=== PATIENT | female | born 1960 | race Caucasian/White ===

== ENCOUNTER 2022-01-10 09:34 | Emergency (ER) | payer BC, SELFPAY ==
[2022-01-10 10:12] VITALS: BP 132/74; PULSE 76; RESP 16; TEMP 36.9; O2SAT 96; BMI 24.3
--- NOTE | 2022-01-10 10:16 | DI.RAD.S_ITS ---
PROCEDURE: XR SHOULDER LT MIN 2V INDICATIONS: fall TECHNIQUE: 3 views of the shoulder were acquired. COMPARISON: None. FINDINGS: Bones: No fractures or dislocations. Krlv-rg-qsiowamt acromioclavicular joint and glenohumeral joint osteoarthritic changes are seen. No suspicious bony lesions. Visualized ribs appear intact. Soft tissues: No suspicious soft tissue calcifications. IMPRESSION: Pblk-dn-safwalyo acromioclavicular joint and glenohumeral joint osteoarthritis. No shoulder fracture or dislocation. No gross soft tissue abnormalities. Dictated by: Donato Paredes M.D. on 01/10/2022 at 10:55 Approved by: Donato Paredes M.D. on 01/10/2022 at 10:56
--- NOTE | 2022-01-10 10:16 | DI.RAD.S_ITS ---
PROCEDURE: XR RIBS LT MIN 3V W CXR1V INDICATIONS: fall TECHNIQUE: To views of the left ribs were acquired, along with a single view chest. COMPARISON: None. FINDINGS: Surgical changes and devices: None. Bones and chest wall: No fractures or dislocations. No suspicious bony lesions. Overlying soft tissues appear unremarkable. Lungs and pleura: No pleural effusions or pneumothorax. Lungs appear clear. Mediastinum: Mediastinal contours appear normal. Heart size is normal. IMPRESSION: No obvious displaced left rib fracture is seen. No acute cardiopulmonary pathology. Dictated by: Donato Paredes M.D. on 01/10/2022 at 10:56 Approved by: Donato Paredes M.D. on 01/10/2022 at 10:57
[2022-01-10 12:58] VITALS: BP 148/86; PULSE 86; RESP 20; O2SAT 96
--- NOTE | 2022-01-10 13:08 | ED.FALL ---
HPI - Fall <Fortino Gonzalez PA-C - Last Filed: 01/10/22 13:21> General Chief Complaint: Fall Stated Complaint: Fall- lt side pain under left breast/SOB Time Seen by Provider: 01/10/22 12:14 History of Present Illness HPI Narrative: 61-year-old female with no reported past medical history presents to the ED status post a mechanical fall sustained 2 days prior to arrival. Patient states that she was climbing up the stairs when she misjudged a step, tripping, bumping her right upper arm on the banister and hitting her ribs under the left armpit against a chest. Patient denies head strike, loss of consciousness. Patient endorses that it was strictly a mechanical fall, was not feeling lightheaded or dizzy prior to the fall. Patient denies numbness, tingling, weakness. Patient denies shortness of breath. Review of Systems <Fortino Gonzalez PA-C - Last Filed: 01/10/22 13:21> Review of Systems ROS Unobtainable: All systems reviewed & are unremarkable except as noted in HPI and below Constitutional Constitutional: Denies chills, Denies fatigue, Denies fever(s), Denies frequent falls, Denies lethargy and Denies weakness Eyes Eyes: Denies change in vision, Denies eye discharge, Denies irritation and Denies loss of vision ENT Ears, Nose, Mouth, and Throat: Denies change in voice, Denies dizziness, Denies neck pain, Denies sore throat and Denies throat swelling Cardiovascular Cardiovascular: Denies chest pain, Denies irregular heart rhythm, Denies lightheadedness, Denies palpitations, Denies dyspnea, Denies dyspnea on exertion and Denies orthopnea Respiratory Respiratory: Denies cough, Denies dyspnea, Denies dyspnea on exertion and Denies wheezing Gastrointestinal Gastrointestinal: Denies abdominal pain, Denies change in bowel habits, Denies diarrhea, Denies nausea and Denies vomiting Genitourinary Genitourinary: Denies hematuria, Denies flank pain, Denies urinary incontinence and Denies urinary urgency Musculoskeletal Musculoskeletal: Denies back pain, Denies muscle weakness, Denies neck pain, Denies numbness and Denies tingling Comments: Left-sided lateral rib pain. Right upper arm pain Integumentary/Breasts Skin/Breast: Denies pruritus, Denies erythema, Denies rash and Denies wounds Neurologic Neurologic: Denies behavioral changes, Denies confusion, Denies dizziness, Denies frequent falls, Denies loss of vision, Denies numbness, Denies tingling and Denies weakness Psychiatric Psychiatric: Denies anxiety, Denies behavioral changes, Denies confusion, Denies depression, Denies homicidal ideation and Denies suicidal ideation Endocrine Endocrine: Denies fatigue, Denies flushing and Denies palpitations Hematologic/Lymphatic Hematologic/Lymphatic: Denies easy bruising Allergic/Immunologic Allergic/Immunologic: Denies urticaria, Denies throat swelling and Denies wheezing Exam <Fortino Gonzalez PA-C - Last Filed: 01/10/22 13:21> Narrative Exam Narrative: Const General:?cooperative, healthy appearing and comfortable [facility] Head:?normal to inspection Ears:?hearing grossly normal bilaterally Nose:?external nose normal Face and sinus:?normal facial exam and sinuses nontender Mouth:?oral mucosae normal Throat:?posterior oropharynx normal Eyes General:?appearance normal, both eyes and all related structures Neck Neck:?normal visual inspection and no lymphadenopathy noted Resp Effort & Inspection:?normal respiratory effort Auscultation:?clear to auscultation bilaterally Cardio Rate:?regular rate Rhythm:?regular rhythm Musculoskeletal Bruising visualized to the right, outer, mid upper arm, is not tender to palpation. There is tenderness to palpation of the left lateral ribs under the armpit, no deformities or bruising visualized on exam. Neuro General:?patient alert, patient awake and patient oriented x3 Initial Vital Signs Initial Vital Signs: Vital Signs Temperature 98.4 F 01/10/22 10:12 Pulse Rate 76 01/10/22 10:12 Respiratory Rate 16 01/10/22 10:12 Blood Pressure 132/74 01/10/22 10:12 Pulse Oximetry 96 01/10/22 10:12 Oxygen Delivery Method 01/10/22 10:12 <Halle Woods DO - Last Filed: 01/10/22 19:17> Initial Vital Signs Initial Vital Signs: Vital Signs Temperature 98.4 F 01/10/22 10:12 Pulse Rate 76 01/10/22 10:12 Respiratory Rate 16 01/10/22 10:12 Blood Pressure 132/74 01/10/22 10:12 Pulse Oximetry 96 01/10/22 10:12 Oxygen Delivery Method 01/10/22 10:12 Course <Fortino Gonzalez PA-C - Last Filed: 01/10/22 13:21> Orders Ordered: ED Orders 01/10/22 10:16 XR ribs LT min 3V w CXR1V Stat XR shoulder LT min 2V Stat Vital Signs Vital signs: Vital Signs - 8 hr 01/10/22 12:58 Pulse Rate 86 Respiratory Rate 20 Blood Pressure 148/86 H Pulse Oximetry 96 Oxygen Delivery Method Room Air <Halle Woods DO - Last Filed: 01/10/22 19:17> Orders Ordered: ED Orders 01/10/22 10:16 XR ribs LT min 3V w CXR1V Stat XR shoulder LT min 2V Stat Vital Signs Vital signs: Vital Signs - 8 hr 01/10/22 12:58 Pulse Rate 86 Respiratory Rate 20 Blood Pressure 148/86 H Pulse Oximetry 96 Oxygen Delivery Method Room Air MDM - Fall <Fortino Gonzalez PA-C - Last Filed: 01/10/22 13:21> Imaging Data Rib x-ray: Radiologist's Impression: PROCEDURE:? XR RIBS LT MIN 3V W CXR1V ? INDICATIONS:? fall ? TECHNIQUE:? To views of the left ribs were acquired, along with a single view chest.? ? COMPARISON:? None. ? FINDINGS:? ? Surgical changes and devices:? None.? ? Bones and chest wall:? No fractures or dislocations.? No suspicious bony lesions.? Overlying soft tissues appear unremarkable.? ? Lungs and pleura:? No pleural effusions or pneumothorax.? Lungs appear clear.? ? Mediastinum:? Mediastinal contours appear normal.? Heart size is normal.? ? IMPRESSION:? No obvious displaced left rib fracture is seen.? No acute cardiopulmonary pathology. ? ? Dictated by: Donato Paredes M.D. on 01/10/2022 at 10:56 ? ? Approved by: Donato Paredes M.D. on 01/10/2022 at 10:57 ? Shoulder x-ray: Radiologist's Impression: PROCEDURE:? XR SHOULDER LT MIN 2V ? INDICATIONS:? fall ? TECHNIQUE:? 3 views of the shoulder were acquired.? ? COMPARISON:? None. ? FINDINGS:? ? Bones:? No fractures or dislocations.? Mjcn-aw-lmaysgne acromioclavicular joint and glenohumeral joint osteoarthritic changes are seen.? No suspicious bony lesions.? Visualized ribs appear intact.? ? Soft tissues:? No suspicious soft tissue calcifications.? ? IMPRESSION:? Mopq-mw-jalmbtxz acromioclavicular joint and glenohumeral joint osteoarthritis.? No shoulder fracture or dislocation.? No gross soft tissue abnormalities. ? ? Dictated by: Donato Paredes M.D. on 01/10/2022 at 10:55 ? ? Approved by: Donato Paredes M.D. on 01/10/2022 at 10:56 ? MDM Narrative Medical decision making narrative: 61-year-old female with no reported past medical history presents to the ED status post a mechanical fall sustained 2 days prior to arrival. Concern for fracture/dislocation versus musculoskeletal sprain/strain. X-rays were obtained of the left ribs and left shoulder. No acute findings on x-rays. Patient's symptoms likely due to a musculoskeletal sprain/strain, contusion. Recommend warm compresses, ibuprofen for symptom relief. Patient has a appointment with her PCP Dr. Perez in the 1st week of January, which she agrees to keep as a follow-up for this injury. ED return precautions were discussed patient. Patient verbalized understanding. Discharge Plan Departure Patient Disposition: Home Clinical Impression: Sprain and strain Instructions: DI for Contusion Activity Restrictions/Additional Instructions: You were evaluated in the ED today for some injuries from a fall. Your x-rays did not show any evidence of fractures or dislocation. You may continue to apply heat compresses, take ibuprofen for your symptoms. If you experience shortness of breath, worsening symptoms, please return to the ED. Please follow-up with your PCP Dr. Perez as scheduled in early January. Referrals: Michael Huggins MD [Primary Care Provider] - Visit Report Forms: Patient Portal/API <Halle Woods DO - Last Filed: 01/10/22 19:17> Cosign ED Attending Coscatarinaature Attestation: I was immediately available in the department for consultation. Documentation has been reviewed. I agree with assessment and plan.
== END 2022-01-10 12:58 | disposition home or self-care (01) ==
PROVIDERS: Emergency Provider Student in an Organized Health Care Education/Training Program; PCP Family Medicine
DX: S43.402A Unspecified sprain of left shoulder joint, initial encounter (principal); S46.912A Strain of unspecified muscle, fascia and tendon at shoulder and upper arm level, left arm, initial encounter; R07.81 Pleurodynia; W19.XXXA Unspecified fall, initial encounter
CPT/HCPCS: 71101; 73030; 99281; 99283

== ENCOUNTER → 2022-01-27 11:22 | Outpatient (CLI) | payer BC, SELFPAY ==
--- NOTE | 2022-01-27 11:48 | DI.RAD.S_ITS ---
PROCEDURE: XR CHEST 2V INDICATIONS: cough, rule out pneumonia TECHNIQUE: 2 views of the chest were acquired. COMPARISON: None. FINDINGS: Surgical changes and devices: None. Lungs and pleura: Lungs are clear. No pleural effusions or pneumothorax. Mediastinum: Mediastinal contours are normal. Heart size is normal. Bones and chest wall: No suspicious bony abnormalities. Soft tissues appear unremarkable. IMPRESSION: No acute cardiopulmonary process demonstrated radiographically. Dictated by: Michael Carter M.D. on 01/27/2022 at 12:04 Approved by: Michael Carter M.D. on 01/27/2022 at 12:05
[2022-01-27 12:02] LABS: COVID19 -Nasal RAPID Negative (Negative)
== END ==
PROVIDERS: PCP Family Medicine; Referring Provider Registered Nurse; Visit Provider Registered Nurse
DX: Z20.822 Contact with and (suspected) exposure to COVID-19 (principal); R05.9 Cough, unspecified
CPT/HCPCS: 71046; 87635

== ENCOUNTER 2022-01-31 18:40 | Emergency (ER) | payer BC, SELFPAY ==
[2022-01-31 19:34] VITALS: BP 146/96; PULSE 66; RESP 18; TEMP 36.4; O2SAT 97; BMI 26.6
[2022-01-31 21:13] LABS: Adenovirus Not Detected (Not Detect); B. parapertussis Not Detected (Not Detecte); Bordetella pertussis Not Detected (Not Detecte); Chlamydophila pneumoniae Not Detected (Not Detect); Coronavirus 229E Not Detected (Not Detect); Coronavirus HKU1 Not Detected (Not Detect); Coronavirus NL 63 Not Detected (Not Detect); Coronavirus OC43 Not Detected (Not Detect); Human Metapneumovirus Not Detected (Not Detect); Human Rhinovirus/Enterovirus Not Detected (Not Detect); Influenza A Not Detected (Not Detect); Influenza B Not Detected (Not Detect); Mycoplasma pneumoniae Not Detected (Not Detect); Parainfluenza Virus 1 Not Detected (Not Detect); Parainfluenza Virus 2 Not Detected (Not Detect); Parainfluenza Virus 3 Not Detected (Not Detect); Parainfluenza Virus 4 Not Detected (Not Detect); Respiratory Syncytial Virus Detected (Not Detect); SARS- CoV-2 Not Detected (Not Detecte)
[2022-01-31 22:25] VITALS: BP 142/75; PULSE 86; RESP 22; O2SAT 99
--- NOTE | 2022-01-31 22:31 | ED.URI ---
HPI - URI/Sore Throat General Chief Complaint: Upper Respiratory Symptoms Stated Complaint: COUGH/VOMITING/CHEST TIGHT Time Seen by Provider: 01/31/22 22:31 Source: patient Mode of arrival: Ambulatory History of Present Illness HPI Narrative: 61-year-old female nonsmoker without significant chronic medical history presents with her grandson and a chief complaint of runny nose, sneezing and a harsh cough for the past few days. At times she coughs so violently that she vomits. She is had subjective fever but no significant work of breathing. No abdominal pain, dysuria, frequency or urgency. There are family members with known RSV Related Data Home Medications Medication Instructions Recorded Confirmed No Known Home Medications 01/18/22 01/18/22 Allergies Allergy/AdvReac Type Severity Reaction Status Date / Time No Known Drug Allergies Allergy Unverified 01/18/22 10:00 Review of Systems Review of Systems Narrative: GENERAL: Denies chills, fatigue, malaise, fever, sweats. HEENT: Denies sinus pain, ear pain, sore throat, difficulty swallowing, dizziness. RESPIRATORY: See HPI CARDIOVASCULAR: Denies chest pain, palpitations, orthopnea, edema, GASTROINTESTINAL: Denies nausea, vomiting, abdominal pain, diarrhea, constipation, melena. : Denies dysuria, frequency, incontinence, hematuria, urinary retention. MUSCULOSKELETAL: denies weakness, joint pain, or bony pain SKIN: Denies rash, skin lesions, or other NEUROLOGIC: Denies weakness, headache, numbness, change in speech, confusion, seizures, incoordination. PSYCHIATRIC: No concerning psychosocial issues. 12 point review of systems is negative except for those stated above Patient History Medical History Fibromyalgia (~1999) Gestational diabetes Interstitial cystitis Mumps (~1963) Surgical History Anesthesia Arm fracture (~07/1968) History of cholecystectomy (~1993) History of hysterectomy (~1997) History of laparoscopy (~1992) History of tonsillectomy (~1969) History of total left hip arthroplasty Family History Father Diabetes mellitus Mother Diabetes mellitus History of heart disease Hypertension Stroke Brother Diabetes mellitus Hypertension Social History Smoking Status: Never smoker Smoking Status: Never smoker alcohol intake frequency: holidays/special occasions only Substance Use Type: does not use Exam Narrative Exam Narrative: GENERAL: [61] year old patient appears stated age. Well-developed patient, in mild distress. Frequent dry hacking cough which is worsened with deep breath, no tachypnea, use of accessory muscles, or need for supplemental oxygen HEAD: Atraumatic. Normocephalic. EYES: Pupils equal round and reactive. Extraocular motions intact. No scleral icterus. No injection or drainage. ENT: Nose without bleeding, purulent drainage. Throat without erythema, tonsillar hypertrophy or exudate. Airway patent. NECK: Trachea midline. Non tender CARDIOVASCULAR: Regular rate and rhythm without murmurs, gallops, or rubs. RESPIRATORY: Clear to auscultation. Breath sounds equal bilaterally. No wheezes, rales, or rhonchi. GASTROINTESTINAL: Abdomen soft, non-tender, nondistended. EXTREMITIES: No edema or joint tenderness. BACK: Nontender without deformity or crepitance. No flank tenderness. NEURO: AOx3. SKIN: No rash or erythema of visible areas Initial Vital Signs Initial Vital Signs: Vital Signs Temperature 97.6 F 01/31/22 19:34 Pulse Rate 66 01/31/22 19:34 Respiratory Rate 18 01/31/22 19:34 Blood Pressure 146/96 H 01/31/22 19:34 Pulse Oximetry 97 01/31/22 19:34 Oxygen Delivery Method 01/31/22 19:34 Course Orders Ordered: ED Orders 01/31/22 19:35 Respiratory Panel (Film Array) Stat Discontinued Medications Albuterol (Albuterol Hfa Prepack) 1 box MISC SEEINSTR ONE Stop: 01/31/22 22:53 Ondansetron HCl (Ondansetron 4 Mg Odt Prepack) 1 bottle MISC SEEINSTR ONE Stop: 01/31/22 22:46 Last Admin: 01/31/22 22:50 Dose: 1 bottle Ondansetron HCl (Ondansetron 4 Mg Odt Prepack) 1 bottle MISC SEEINSTR ONE Stop: 01/31/22 22:46 Vital Signs Vital signs: Vital Signs - 8 hr 01/31/22 19:34 01/31/22 22:25 Temperature 97.6 F Pulse Rate 66 86 Respiratory Rate 18 22 Blood Pressure 146/96 H 142/75 H Pulse Oximetry 97 99 Oxygen Delivery Method Room Air Room Air MDM - URI/Sore Throat Lab Data Labs: Lab Results 01/31/22 Range/Units 19:35 Chlamy pneumoniae PCR Not detected (Not Detect) Adenovirus (PCR) Not detected (Not Detect) B. pertussis DNA (PCR) Not detected (Not Detecte) B.parapertussis DNA PCR Not detected (Not Detecte) Coronavirus OC43 (PCR) Not detected (Not Detect) Coronavirus HKU1 (PCR) Not detected (Not Detect) Coronavirus 229E (PCR) Not detected (Not Detect) SARS-CoV-2 (PCR) Not detected (Not Detecte) Coronavirus NL63 (PCR) Not detected (Not Detect) Human Metapneumovir PCR Not detected (Not Detect) Influenza Type A (PCR) Not detected (Not Detect) Influenza Type B (PCR) Not detected (Not Detect) M. pneumoniae (PCR) Not detected (Not Detect) Parainfluenza 1 (PCR) Not detected (Not Detect) Parainfluenza 2 (PCR) Not detected (Not Detect) Parainfluenza 3 (PCR) Not detected (Not Detect) Parainfluenza 4 (PCR) Not detected (Not Detect) RSV (PCR) Detected H (Not Detect) Entero/Rhino (PCR) Not detected (Not Detect) Imaging Data Chest x-ray: Radiologist's Impression: ? Chart Viewer Diagnostics Subcategory All Activity ??:?? All Time ??:?? All Subcategories Filter Laboratory Imaging Microbiology Pathology Blood Bank Tests Cardiovascular Other Specialty DATE TYPE STATUS REF RANGE/AUTHOR Hx 01/27/22 11:48 Chest X-Ray Signed Michael Carter 01/10/22 10:16 Shoulder X-Ray Signed Donato Paredes 01/10/22 10:16 Ribs X-Ray Signed Donato Paredes Deborah ED 61, F?1960 MRN#? [id number] REG ER,?Main ED??R06?? 172.72cm 79.379kg BMI: 26.6kg/m? Upper Respiratory Symptoms Acc#? [id number] Resus Status Not Ordered No Hx Avail Special Indicators No Data to Display Home Meds Not Confirmed Prescription Monitoring Program MEDICATIONS (INSTRUCTIONS) LAST TAKEN Active ??No Known Home Medications Allergies No Known Drug Allergies Problems ? ONSET Fibromyalgia ~1999 Vital Signs Today 22:25 BP 142/75?H Pulse 86? Resp 22? O2 Sat 99? Delivery Room Air? Diagnostics Reports Vero Guzmán??61??F??1960 ? Allergy/Adv: No Known Drug Allergies (More??) Close Chest X-Ray (Signed) Michael Carter - 01/27/22 Shoulder X-Ray (Signed) Donato Paredes - 01/10/22 Ribs X-Ray (Signed) Donato Paredes - 01/10/22 Launch?[address] [address] XRay Report Signed Patient: Vero Guzmán MR#: [id number] : 1960 Acct:[id number] Age/Sex: 61 / F Date of Service: 01/27/22 Loc: LAB Accession Number: [id number] ?? Procedure: XR chest 2V Ordering Provider: Valente Elizalde PROCEDURE:? XR CHEST 2V ? INDICATIONS:? cough, rule out pneumonia ? TECHNIQUE:? 2 views of the chest were acquired.? ? COMPARISON:? None. ? FINDINGS:? ? Surgical changes and devices:? None.? ? Lungs and pleura:? Lungs are clear.? No pleural effusions or pneumothorax.? ? Mediastinum:? Mediastinal contours are normal.? Heart size is normal.? ? Bones and chest wall:? No suspicious bony abnormalities.? Soft tissues appear unremarkable.? ? IMPRESSION:? No acute cardiopulmonary process demonstrated radiographically. ? ? Dictated by: Michael Carter M.D. on 01/27/2022 at 12:04 ? ? Approved by: Michael Carter M.D. on 01/27/2022 at 12:05 ? [facility] Narrative Medical decision making narrative: Patient with dry and hacking cough worsened with deep breath. Chest x-ray is clear, respiratory panel demonstrates RSV. She has no significant work of breathing, use of accessory muscles, tachypnea or hypoxemia. Respiratory has provided an albuterol MDI with spacer and training given her bronchospastic nature of her cough. She is given return precautions and questions answered to her apparent satisfaction Discharge Plan Departure Patient Disposition: Home Clinical Impression: Respiratory syncytial virus (RSV) Instructions: Respiratory Syncytial Virus Activity Restrictions/Additional Instructions: *You have been diagnosed with [RSV] *What to do: *Please continue to take your regular medications as directed. [ ] New medication prescriptions sent to your pharmacy: [ ] [ ] New medication written as a paper prescription [ ] No new medications given *Please follow up with your primary care provider in 2-3 days, call for an appointment. Let them know you were seen in the Emergency Department and that we ask that you be seen in follow up. We will electronically transmit a record of today's note if your PCP is in our system *If you do not have a primary care provider please contact the [facility] Resource line at [phone]. They will ask some questions about your medical history and help get you set up with a doctor in the community. *Return to Emergency Department if you should have any new, worsening or concerning symptoms, such as [fever greater than 101 F, shaking chills, worsening pain, persistent vomiting or other bothersome symptoms] Prescriptions: No Action No Known Home Medications Referrals: Michael Huggins MD [Primary Care Provider] -
[2022-01-31] MEDS: ONDANSETRON 4 MG ODT PREPACK 1 BOTTLE MISC (22:50)
[2022-01-31] MEDS: ALBUTEROL HFA PREPACK 1 BOX MISC (22:56)
[2022-01-31 23:03] VITALS: BP 139/74; PULSE 80; RESP 18; O2SAT 98
== END 2022-01-31 23:05 | disposition home or self-care (01) ==
PROVIDERS: Emergency Provider Emergency Medicine; PCP Family Medicine
DX: J06.9 Acute upper respiratory infection, unspecified (principal); B97.4 Respiratory syncytial virus as the cause of diseases classified elsewhere
CPT/HCPCS: 87633; 99281; 99282

== ENCOUNTER → 2022-04-19 11:38 | Outpatient (CLI) | payer BC, SELFPAY ==
[2022-04-19 13:10] LABS: Influenza A - CEPHEID Flu A NEGATIVE (NEGATIVE); Influenza B - CEPHEID Flu B NEGATIVE (NEGATIVE); Respiratory Syncytial Virus Negative (Negative)
[2022-04-19 13:13] LABS: COVID-19 CEPHEID 4-PLEX PCR POSITIVE (Negative)
== END ==
PROVIDERS: PCP Family Medicine; Visit Provider Physician Assistant Medical
DX: R50.9 Fever, unspecified (principal)
CPT/HCPCS: 0241U

== ENCOUNTER → 2022-07-31 10:57 | Outpatient (CLI) | payer BC, SELFPAY ==
--- NOTE | 2022-07-31 10:58 | DI.RAD.S_ITS ---
PROCEDURE: XR HIP W PEL IF DONE LT 2V INDICATIONS: left hip pain TECHNIQUE: AP pelvis with lateral view(s) of the left hip(s). COMPARISON: None. FINDINGS: Bones: No acute fracture dislocation identified. Left hip arthroplasty. Hardware appears intact. Degenerative changes of the right hip likely present Soft tissues: The visualized bowel gas pattern is normal. No suspicious soft tissue calcifications. IMPRESSION: No acute osseous abnormality. If symptoms persist, follow-up radiographs and/or CT may be helpful for further evaluation. Dictated by: Olegario Viera M.D. on 07/31/2022 at 17:48 Approved by: Olegario Viera M.D. on 07/31/2022 at 17:53
--- NOTE | 2022-07-31 10:58 | DI.RAD.S_ITS ---
PROCEDURE: XR LUMBAR SPINE MIN 4V INDICATIONS: left hip pain TECHNIQUE: 5 views of the lumbar spine were acquired, including bilateral oblique views. COMPARISON: None. FINDINGS: Bones: 5 nonrib-bearing vertebrae are present. Mild right convexity curvature centered at L2-L3. Moderate multilevel degenerative changes with disc height loss, endplate spurring, and facet arthropathy. Suspect mild-moderate multilevel bony foraminal narrowing on oblique views. No lumbar vertebral body compression fracture identified. 3 millimeters anterolisthesis L4 on L5, 5 millimeters retrolisthesis L2 on L3, 4 millimeters retrolisthesis L1 on L2 Soft tissues: Overlying bowel gas pattern is normal. No suspicious soft tissue calcifications. Right upper quadrant metal clips possible prior cholecystectomy. Left hip arthroplasty IMPRESSION: Multilevel degenerative changes of the lumbar spine Dictated by: Olegario Viera M.D. on 07/31/2022 at 17:44 Approved by: Olegario Viera M.D. on 07/31/2022 at 17:48
== END ==
PROVIDERS: PCP Family Medicine; Referring Provider Family Medicine; Visit Provider Family Medicine
DX: M47.816 Spondylosis without myelopathy or radiculopathy, lumbar region (principal); M25.552 Pain in left hip; M54.42 Lumbago with sciatica, left side; Z96.642 Presence of left artificial hip joint
CPT/HCPCS: 72110; 73502

== ENCOUNTER → 2025-03-21 16:29 | Outpatient (CLI) | payer BC, SELFPAY | PROVIDERS: PCP Family Medicine; Visit Provider Registered Nurse | DX: J02.9 Acute pharyngitis, unspecified (principal) | CPT/HCPCS: 87070 ==